=== PATIENT | male | born 1995 | race Caucasian/White ===

== ENCOUNTER 2016-06-24 23:35 | Emergency (ER) | payer OTHER ==
[~2016-06-24] VITALS: Ht 175.3 cm; Wt 63.5 kg
--- NOTE | 2016-06-25 00:02 | ED GI/GU/ABDOMINAL COMPLAINT ---
History of Present Illness General Chief Complaint: Abdominal Pain/Flank Pain Stated Complaint: "PER PT SHARP STOMACH PAIN" Source: patient Exam Limitations: no limitations Vital Signs & Intake/Output Vital Signs & Intake/Output Vital Signs Date Time Temp Pulse Resp B/P Pulse O2 O2 Flow FiO2 Ox Delivery Rate 06/25 0228 98.7 87 18 122/73 98 Room Air 06/25 0025 Room Air 06/24 2344 98.8 94 18 124/80 98 Room Air ED Intake and Output 06/25 0000 06/24 1200 Intake Total Output Total Balance Patient 140 lb Weight Allergies Coded Allergies: NO KNOWN ALLERGIES (06/25/16) Reconcile Medications Diphenoxylate HCl/Atropine (Lomotil 2.5-0.025 MG Tablet) 2.5 MG-0.025 MG TABLET 1 TAB PO 4 TIMES/DAY PRN diarrhea forty...[id number] Ondansetron (Zofran Odt) 4 MG TAB.RAPDIS 1 TAB SL TID PRN nausea Triage Note: PT TO TRIAGE FROM HOME C/O SHARP DIFFUSE ABD PAIN AND DRY HEAVING. +N/+V/-D Triage Nurses Notes Reviewed? yes Duration: week(s):, waxing and waning Timing: recent history Quality/Severity: cramping Location: generalized abdomen Radiation: no radiation Activities at Onset: none Prior Abdominal Problems: similar symptoms Modifying Factors: Worsens With: defecating, vomiting. Associated Symptoms: abdominal pain, diarrhea, nausea/vomiting HPI: 20 yo gentleman presents with a recurrent episode of diffuse abdominal pain, nausea, vomiting, diarrhea for the past 7 days. He notes that he had a similar episode a few months ago, was treated with antibiotics at another hospital. He notes that his symptoms got better, but that, "really, I just have loose stools all the time for the past year... Sometimes the pain gets really bad like tonight, and so I had to come in." He notes no fever, chills, dysuria, cough, dyspnea, chest pain. He is otherwise well. Past History Travel History Traveled to [place] past 21 day No Medical History Any Pertinent Medical History? see below for history Neurological: NONE EENT: NONE Cardiovascular: NONE Respiratory: NONE Gastrointestinal: "colitis" - treated at the [facility]. Hepatic: NONE Renal: NONE Musculoskeletal: NONE Psychiatric: NONE Endocrine: NONE Blood Disorders: NONE Cancer(s): NONE CUSTOMER RELATIONSHIP SPECIALIST/Reproductive: NONE Surgical History Surgical History: none Psychosocial History What is your primary language Danish Tobacco Use: Never used ETOH Use: occasional use Family History Hx Contributory? No Review of Systems Review of Systems Constitutional: Reports: no symptoms. EENTM: Reports: no symptoms. Respiratory: Reports: no symptoms. Cardiovascular: Reports: no symptoms. GI: Reports: no symptoms. Genitourinary: Reports: no symptoms. Musculoskeletal: Reports: no symptoms. Skin: Reports: no symptoms. Neurological/Psychological: Reports: no symptoms. Hematologic/Endocrine: Reports: no symptoms. Immunologic/Allergic: Reports: no symptoms. All Other Systems: Reviewed and Negative Physical Exam Physical Exam General Appearance: well developed/nourished, mild distress Head: atraumatic, normal appearance Eyes: Bilateral: normal appearance. Ears, Nose, Throat, Mouth: hearing grossly normal Neck: normal inspection, supple, full range of motion, normal alignment Respiratory: normal breath sounds, chest non-tender, no respiratory distress, quiet respiration, lungs clear Cardiovascular: regular rate/rhythm Gastrointestinal: normal bowel sounds, soft, rlq tenderness to palpation. no rebound. no guarding. Back: normal inspection Extremities: normal range of motion Neurologic/Psych: no motor/sensory deficits, awake, alert, oriented x 3 Skin: intact, normal color, warm/dry Core Measures ACS in differential dx? No Severe Sepsis Present: No Septic Shock Present: No Progress Differential Diagnosis: crohn's vs food poisoning vs other. Plan of Care: Orders Procedure Date/time Status LIPASE 06/24 2341 Complete HEPATIC FUNCTION PANEL 06/24 2341 Complete CBC WITHOUT DIFFERENTIAL 06/24 2341 Complete BASIC METABOLIC PANEL 06/24 2341 Complete AMYLASE 06/24 2341 Complete Laboratory Tests 06/24/16 2352: Anion Gap 18 H, Estimated GFR > 60, BUN/Creatinine Ratio 15.6, Glucose 126 H, Calcium 9.9, Total Bilirubin 0.7, Direct Bilirubin 0.3, AST 20, ALT 30, Alkaline Phosphatase 85, Total Protein 8.1, Albumin 4.6, Amylase 48, Lipase 102, CBC w Diff MAN DIFF ORDERED, RBC 6.03, MCV 76.2 L, MCH 24.5 L, RDW 15.7 H, MPV 8.0, Gran % 91.2 H, Lymphocytes % 4.8 L, Monocytes % 3.5, Eosinophils % 0.2, Basophils % 0.3, Absolute Granulocytes 13.1 H, Segmented Neutrophils 87 H, Band Neutrophils 3, Absolute Lymphocytes 0.7 L, Lymphocytes 6 L, Monocytes 2, Absolute Monocytes 0.5, Eosinophils 1, Absolute Eosinophils 0, Basophils 1, Absolute Basophils 0, Platelet Estimate ADEQUATE, Hypochromic-Microcytic 1+, Poikilocytosis 1+, Anisocytosis 1+, Microcytic Cells 1+, Ovalocytes 1+, PUBS MCHC 32.2 L, Fld Total RBCs Counted 100 Diagnostic Imaging: Viewed by Me: CT Scan. Discussed w/RAD: CT Scan. Radiology Impression: abd/pelvic ct... terminal ileitis Initial ED EKG: none Comments: PATIENT: PRINCESS SINCLAIR PRESENT AGE: 20 PATIENT ACCOUNT NO: [id number] : 93 LOCATION: [facility] ORDERING PHYSICIAN: JODY SANTORO MD SERVICE DATE: 06/25/16 EXAM TYPE: CAT - CT ABD & PELVIS W/O IV CONTRAS EXAMINATION: CT ABDOMEN AND PELVIS WITHOUT CONTRAST CLINICAL INFORMATION: Left-sided abdominal pain. History of colitis. Question inflammatory bowel disease. COMPARISON: None. TECHNIQUE: Multidetector volumetric imaging was performed from the superior aspect of the liver through the pubic symphysis. Sagittal and coronal reformatted images were obtained on the technologist's workstation. DLP: 263 mGy-cm. FINDINGS: LUNG BASES: The visualized lung bases are unremarkable. LIVER, GALLBLADDER, AND BILIARY TREE: The liver is normal in size, shape, and attenuation. No focal hepatic lesion or biliary ductal dilatation is present. The gallbladder is unremarkable with no evidence of radiopaque gallstones, gallbladder wall thickening, or obvious pericholecystic inflammatory changes. PANCREAS: Unremarkable. SPLEEN: There is a 2.4 cm water density lesion within the spleen which is indeterminate, possibly hemangioma. Spleen is otherwise normal. ADRENAL GLANDS: Unremarkable. KIDNEYS AND URETERS: The kidneys are normal in size, shape, and attenuation. No hydronephrosis, hydroureter, or calculi seen. No perinephric stranding. BLADDER: Unremarkable. GASTROINTESTINAL TRACT: There is significant bowel wall thickening at the distal 15 cm of ileum including the terminal ileum. There is equalization of the small bowel in this region with proximal bowel dilatation, measuring up to 5 cm in diameter. There is surrounding haziness of the mesenteric fat, consistent with inflammation. No surrounding abscesses are identified. Reactive lymph nodes are present in the adjacent mesentery. The colon is decompressed and normal in caliber without appreciable bowel wall thickening or inflammatory changes. The other segments of small bowel appear normal in wall thickness without additional foci of inflammation. No intraperitoneal free fluid or free air. No perianal abnormalities are identified. ABDOMINAL WALL: No significant hernia is appreciated. LYMPH NODES: Mildly enlarged, reactive lymph nodes are present in the mesentery. No significant retroperitoneal adenopathy. VASCULAR: Unremarkable. PELVIC VISCERA: Unremarkable. OSSEOUS STRUCTURES: Unremarkable. Specifically, the SI joints are unremarkable. Bones are normal in appearance. IMPRESSION: 1. Acute terminal ileitis. Given the history of colitis, this would be most compatible with Crohn's disease. No dilatation of bowel proximal to the terminal ileum is either due to an obstruction produced by the acute inflammation/stricture or adynamic ileus. 2. A 2.4 cm water density lesion in the spleen, potentially a hemangioma. Consider follow-up MRI with and without contrast for more definitive evaluation on a nonemergent basis. DICTATED BY: CLAUDIO MORALES MD DATE/TIME DICTATED:06/25/16110 DIRECTOR INVESTOR RELATIONS:[place] DATE/TIME TRANSCRIBED:06/25/16110 CONFIDENTIAL, DO NOT COPY WITHOUT APPROPRIATE AUTHORIZATION. <Electronically signed in Other Vendor System> SIGNED BY: CLAUDIO MORALES MD 06/25/16120 Departure Departure Disposition: HOME OR SELF CARE Condition: Stable Clinical Impression Primary Impression: Terminal ileitis of small intestine Referrals: PATIENT HAS NO PRIMARY CARE DR (PCP/Family) Departure Forms: Customer Survey General Discharge Information Prescriptions: Current Visit Scripts Ondansetron (Zofran Odt) 1 TAB SL TID PRN nausea #10 TAB Ref 3 Diphenoxylate HCl/Atropine (Lomotil 2.5-0.025 MG Tablet) 1 TAB PO 4 TIMES/DAY PRN diarrhea #40 TAB forty...[id number] Comments discussed with dr. wright given strong suspicion for crohn's disease. He will see patient later today... gave zofran and lomotil for symptomatic relief. discussed at length with patient.
[2016-06-25 00:04] LABS: ABSOLUTE BASOPHIL COUNT 0 /CUMM (0.0-0.2); ABSOLUTE EOSINOPHIL COUNT 0 /CUMM (0.0-0.7); ABSOLUTE GRANULOCYTE CT 13.1 /CUMM (1.4-6.5); ABSOLUTE LYMPH COUNT 0.7 /CUMM (1.2-3.4); ABSOLUTE MONOCYTE COUNT 0.5 /CUMM (0.10-0.60); BASOPHIL % 0.3 % (0.0-2.0); EOSINOPHIL % 0.2 % (0-5); GRANULOCYTE % 91.2 % (42.2-75.2); MEAN CORPUSCULAR HGB 24.5 PG (27.0-31.0); MEAN CORPUSCULAR HGB CONC 32.2 G/DL (33.0-37.0); MEAN CORPUSCULAR VOLUME 76.2 FL (80.0-94.0); PLATELET COUNT 381 /CUMM (130-400); RBC DISTRIBUTION WIDTH 15.7 % (11.5-14.5); RED BLOOD CELL CT 6.03 /CUMM (4.70-6.10); WHITE BLOOD CELL COUNT 14.4 /CUMM (4.8-10.8)
--- NOTE | 2016-06-25 01:21 | CT SCAN REPORT ---
EXAMINATION: CT ABDOMEN AND PELVIS WITHOUT CONTRAST CLINICAL INFORMATION: Left-sided abdominal pain. History of colitis. Question inflammatory bowel disease. COMPARISON: None. TECHNIQUE: Multidetector volumetric imaging was performed from the superior aspect of the liver through the pubic symphysis. Sagittal and coronal reformatted images were obtained on the technologist's workstation. DLP: 263 mGy-cm. FINDINGS: LUNG BASES: The visualized lung bases are unremarkable. LIVER, GALLBLADDER, AND BILIARY TREE: The liver is normal in size, shape, and attenuation. No focal hepatic lesion or biliary ductal dilatation is present. The gallbladder is unremarkable with no evidence of radiopaque gallstones, gallbladder wall thickening, or obvious pericholecystic inflammatory changes. PANCREAS: Unremarkable. SPLEEN: There is a 2.4 cm water density lesion within the spleen which is indeterminate, possibly hemangioma. Spleen is otherwise normal. ADRENAL GLANDS: Unremarkable. KIDNEYS AND URETERS: The kidneys are normal in size, shape, and attenuation. No hydronephrosis, hydroureter, or calculi seen. No perinephric stranding. BLADDER: Unremarkable. GASTROINTESTINAL TRACT: There is significant bowel wall thickening at the distal 15 cm of ileum including the terminal ileum. There is equalization of the small bowel in this region with proximal bowel dilatation, measuring up to 5 cm in diameter. There is surrounding haziness of the mesenteric fat, consistent with inflammation. No surrounding abscesses are identified. Reactive lymph nodes are present in the adjacent mesentery. The colon is decompressed and normal in caliber without appreciable bowel wall thickening or inflammatory changes. The other segments of small bowel appear normal in wall thickness without additional foci of inflammation. No intraperitoneal free fluid or free air. No perianal abnormalities are identified. ABDOMINAL WALL: No significant hernia is appreciated. LYMPH NODES: Mildly enlarged, reactive lymph nodes are present in the mesentery. No significant retroperitoneal adenopathy. VASCULAR: Unremarkable. PELVIC VISCERA: Unremarkable. OSSEOUS STRUCTURES: Unremarkable. Specifically, the SI joints are unremarkable. Bones are normal in appearance. IMPRESSION: 1. Acute terminal ileitis. Given the history of colitis, this would be most compatible with Crohn's disease. No dilatation of bowel proximal to the terminal ileum is either due to an obstruction produced by the acute inflammation/stricture or adynamic ileus. 2. A 2.4 cm water density lesion in the spleen, potentially a hemangioma. Consider follow-up MRI with and without contrast for more definitive evaluation on a nonemergent basis.
[2016-06-25] MEDS ORDERED: LOMOTIL 2.5-0.1 EACH PO (02:09)
[2016-06-25] MEDS ORDERED: ZOFRAN ODT4 M1 SL (02:09)
[2016-06-25 02:28] VITALS: BP 122/73
== END 2016-06-25 02:29 ==
LOC: ERH 23:35
PROVIDERS: Pediatrics
DX: K50.00 Crohn's disease of small intestine without complications (principal)
CPT/HCPCS: 74176; 96374; 96375; J1885; J2405; J2550